=== PATIENT | female | born 1985 | race Caucasian/White ===

== ENCOUNTER 2016-04-16 18:45 | Inpatient (IN) | payer BC, OTHER ==
[2016-04-16] MEDS: DEXTROSE 5%-LACTATED RINGERS 1,000 ML IV SCH (19:30)
[2016-04-16] MEDS ORDERED: DINOPROSTONE 10 MG VAGINAL SUPPOSITORY VG ONE (20:15)
[2016-04-16 20:30] LABS: BASOPHIL 0.4 % (0-2.0); EOSINOPHIL 0.9 % (0-4.5); MCH 30.3 pg (25.7-33.7); MCHC 33.4 g/dl (32.0-36.0); MEAN CELL VOLUME 90.7 fl (80-96); MEAN PLT VOLUME 9.6 fl (7.5-11.1); NEUTROPHILS 65.5 % (42.8-82.8); PLATELET COUNT 177 K/MM3 (134-434); RDW 13.4 % (11.6-15.6); WHITE BLOOD COUNT 8.2 K/mm3 (4.0-10.0)
--- NOTE | 2016-04-16 20:30 | HP ---
Past Medical History - Primary Care Physician PCP:: Felipe Crockett - Admission Chief Complaint: 30 yo P0 with at EGA 40w3d admitted for labor induction. History of Present Illness: Primigravida GBS (-) Not in labor Unfavorable cervix. 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: No: Alzheimer's, CVA, Dementia, Migraine, Multiple Sclerosis, Peripheral Neuropathy, Parkinson's, Seizure, Syncope, TIA, Vertigo, Other Cardiovascular: No: AFIB, Aneurysm, Aortic Insufficiency, Aortic Stenosis, CAD, CHF, Deep Vein Thrombosis, HTN, Hyperlipdemia, MS, Mitral Insufficiency, Mitral Stenosis, Murmur, Pulmonary Hypertension, Other Pulmonary: No: Asthma, Bronchitis, Cancer, COPD, O2 Dependent, Pneumonia, Previously Intubated, Pulmonary Embolus, Pulmonary Fibrosis, Sleep Apnea, Other Gastrointestinal: No: Ascites, Cancer, Constipation, Crohn's Disease, Diverticulitis, Diverticulosis, Esophageal Varices, Gastritis, GERD, GI Bleed, Hemorrhoids, Hiatal Hernia, Inflamatory Bowel Disease, Irritable Bowel Disease, Pancreatitis, Peptic Ulcer Disease, Ulcerative Colitis, Other Hepatobiliary: No: Cirrhosis, Cholelithiasis, Cholecystitis, Choledocholithiasis , Hepatitis A, Hepatitis B, Hepatitis C, Other Renal/: No: Renal Failure, Renal Inusuff, BPH, Cancer, Hematuria, Hemodialysis , Neurogenic Bladder, Renal Calculi, UTI, Other Reproductive: No: Ectopic , Endometriosis, Fibroids, PID, Polycystic Ovary Syndrome, Postmenopausal, Other ...: 1 ...Para: 0 ... Weeks Gestation by Dates: 40.3 Heme/Onc: No: Anemia, B12 Deficiency, Bleeding Disorder, Cancer, Current Chemotherapy, Current Radiation Therapy, Hemochromatosis, Hypercoaguable State, Myeloproliferative Synd, Sickle Cell Disease, Sickle Cell Trait, Thrombocytopenia, Other Infectious Disease: No: AIDS, C-Diff, Herpes Zoster, HIV, MRSA, STD's, Tuberculosis, VREF, Other Psych: No: Addictions, Anxiety, Bipolar, Depression, Panic, Psychosis, Schizophrenia, Other Musculoskeletal: No: Bursitis, Chronic low back pain, Hemiparesis, Hemiplegia, Osteoarthritis, Paraplegia, Other Rheumatology: No: Fibromyalgia, Gout, Lupus, Rheumatoid Arthritis, Sarcoidosis, Vasculitis, Other ENT: No: Allergic Rhinitis, Sinusitis, Other Endocrine: No: Graeme's Disease, Didi's Disease, Diabetes Insipidus, Diabetes Mellitus, Hyperparathyroidism, Hyperthyroidism, Hypothyroidism, Osteopenia, SIADH, Other Dermatology: No: Basal Cell, Cellulitis, Eczema, Melanoma, Psoriasis, Squamous Cell, Other - Past Surgical History Past Surgical History: Yes: None Hx Myomectomy: No Hx Transabdominal Cerclage: No - Smoking History Have you smoked in the past 12 months: No - Alcohol/Substance Use Hx Alcohol Use: No History of Substance Use: reports: None - Social History Usual Living Arrangement: Yes: With Spouse ADL: Independent History of Recent Travel: No Home Medications - Allergies Allergies/Adverse Reactions: Allergies Allergy/AdvReac Type Severity Reaction Status Date / Time No Known Allergies Allergy Verified 04/16/16 20:30 - Home Medications Home Medications: Ambulatory Orders Vitamins (Sjr) - 1 tab PO DAILY 04/16/16 Review of Systems Findings/Remarks: Well appearing - Review of Systems Constitutional: reports: No Symptoms Eyes: reports: No Symptoms HENT: reports: No Symptoms Neck: reports: No Symptoms Cardiovascular: reports: No Symptoms Respiratory: reports: No Symptoms Gastrointestinal: reports: No Symptoms Genitourinary: reports: No Symptoms Breasts: reports: No Symptoms Reported Musculoskeletal: reports: No Symptoms Integumentary: reports: No Symptoms Neurological: reports: No Symptoms Endocrine: reports: No Symptoms Hematology/Lymphatic: reports: No Symptoms Psychiatric: reports: No Symptoms Pain Intensity: 0 Physical Exam - Maternity Vital Signs: BP 135/75, Pulse 89, Temp 97.8 Constitutional: Yes: Well Nourished, No Distress, Calm Eyes: Yes: WNL, Conjunctiva Clear HENT: Yes: WNL, Atraumatic, Normocephalic Neck: Yes: WNL, Supple, Trachea Midline Cardiovascular: Yes: WNL, Regular Rate and Rhythm Lungs: Clear to auscultation, Normal air movement Breast(s): Yes: WNL - Abdominal Exam/OB Fundal Height: 40 Number of Fetuses: Single Presentation: Vertex Contractions: Yes Regularity: Irregular Intensity: Unaware Monitor Mode: External Heart Rate (range): 130 Heart Rate Location: Midline Category: I Accelerations: Uniform Decelerations: None - Vaginal Exam/OB Vaginal Bleediing: Old Blood Speculum Exam: No Dilatation (cm): 0 Effacement (%): 0 Amniotic Membrane Status: Intact Presentation: Vertex/Position Station: -4 (Adequate gynecoid pelvimetry) - Physical Exam Musculoskeletal: Yes: WNL Extremities: Yes: WNL Edema: Yes Edema: LLE: 1+, RLE: 1+ Integumentary: Yes: WNL Deep Tendon Reflex Grade: Normal +2 ...Motor Strength: WNL Psychiatric: Yes: WNL, Alert, Oriented Hemorrhage Risk Assessment - Risk Factors Medium Risk Factors: Yes: None High Risk Factors: Yes: None Risk Score: 1 Risk Level: Medium Risk Imaging - Results Ultrasound: Report Reviewed Assessment/Plan 30 yo P0 with at EGA 40w3d admitted for labor induction. Patient is not in labor and has unfavorable cervical exam. The fetus with Category I tracing and does not require intervention. Adequate gynecoid pelvimetry noted. Management options were discussed. Risks, benefits of expectant management vs labor induction were discussed. Patient requested labor induction. The risks of infection, bleeding, failed induction, uterine tachysystole, distress, shoulder dystocia, etc. explained.
[2016-04-16 20:54] LABS: CALCIUM 8.2 mg/dL (8.5-10.1); CREATININE 0.8 mg/dL (0.55-1.02)
[2016-04-16 21:05] LABS: INR 0.88 (0.82-1.09); PROTHROMBIN TIME (PATIENT) 9.7 SEC (9.98-11.88)
[2016-04-16 21:29] VITALS: BMI 32.0
[2016-04-16] MEDS ORDERED: TUBERCULIN PPD 5 TU/0.1ML SYRINGE (IN PATIENT USE ONLY) ID ONE (21:30)
[2016-04-17] MEDS: DEXTROSE 5%-LACTATED RINGERS 1,000 ML IV SCH ×2 (02:45→11:24)
[2016-04-17] MEDS ORDERED: ACETAMINOPHEN 325 MG TABLET (FP) PO ONE (07:10)
[2016-04-17] MEDS ORDERED: BUTORPHANOL TARTRATE 1 MG/ML VIAL IVPB ONE (08:47)
[2016-04-17] MEDS ORDERED: PROMETHAZINE HCL 25 MG/1 ML VIAL IVPB ONE (08:47)
--- NOTE | 2016-04-17 08:54 | PN ---
Ante-Partal Exam - Subjective Subjective: Patient w/o complaints. She has some contractions. Vital Signs: Vital Signs Temperature 98.1 F 04/17/16 08:00 Pulse Rate 85 04/17/16 08:00 Respiratory Rate 18 04/17/16 08:00 Blood Pressure 133/79 04/17/16 08:00 O2 Sat by Pulse Oximetry (%) Bleeding: No Headache: No Visual changes: No Right upper quadrant pain: No Pain (scale 1-10): 4 - Contractions Contractions: Yes Regularity: Irregular Intensity: Mild Monitor Mode: External - Exam during Labor Heart Rate: 130 Variability: Moderate Heart Rate Location: Midline Category: I Monitor Accelerations: Present Monitor Decelerations: None Amniotic Membrane Status: Intact - Intrapartum Hemorrhage Risk Medium Risk Factors: None High Risk Factors: None Risk Score: 0 Risk Level: Low Risk - Assessment/Plan Assessment/Plan: 30 yo P0 at EGA 40w4d undergoing labor induction. Fetus with Category I tracing. Patient is doing well. Plan to start pitocin for labor induction. IV sedation for pain mgt. Plan of care, risks, benefits, alternatives were discussed with pt and .
[2016-04-17] MEDS ORDERED: OXYTOCIN 15 UNITS/ LR 250 ML 250 ML IVPB SCH (09:00)
[2016-04-17] MEDS: FENTANYL/BUPIVACAINE/NS/PF - PCEA - 50 ML DISP.SYRIN EP SCH (12:30)
[2016-04-17] MEDS ORDERED: CITRIC ACID/SODIUM CITRATE 30 ML UNIT-DOSE CUP PO ONE (14:30)
--- NOTE | 2016-04-17 14:44 | PN ---
Ante-Partal Exam - Subjective Subjective: Patient w/o complaints. Patient is s/p epidural. FHT reviewed and is Category I at this time. Pitocin is off. Prior FHT with recurrent variable decels and prolonged decels. The FHT recovered after ptocin was turned off, positional changes. Vital Signs: Vital Signs Temperature 97.8 F 04/17/16 14:00 Pulse Rate 88 04/17/16 14:00 Respiratory Rate 20 04/17/16 14:00 Blood Pressure 123/67 04/17/16 14:00 O2 Sat by Pulse Oximetry (%) 99 04/17/16 14:00 Bleeding: No Headache: No Visual changes: No Right upper quadrant pain: No Pain (scale 1-10): 0 - Contractions Contractions: Yes Regularity: Irregular Intensity: Unaware - Exam during Labor Heart Rate: 130 Variability: Moderate Heart Rate Location: Midline Category: I Monitor Accelerations: Present Monitor Decelerations: None (Prior variables and prolonged decels.) Exam: Vaginal Dilatation (cm): 1 Effacement (%): 50 Amniotic Membrane Status: Intact Presentation: Vertex Station: -3 - Intrapartum Hemorrhage Risk Medium Risk Factors: None High Risk Factors: None Risk Score: 0 Risk Level: Low Risk - Assessment/Plan Assessment/Plan: 30 yo P0 with at EGA 40w4d admitted for labor induction. The fetus is with recurrent decels when pitocin is used. FHT is Category I at this time but the patient does not want to proceed with induction. We discussed the options for management including continuing induction vs. section. Patient requested to have a section. The risk of surgery explained, including but not limited to infection, bleeding, scarring, injury to underlying organs or structures. Patient requested to proceed with surgery.
[2016-04-17] MEDS ORDERED: ONDANSETRON 4 MG/2 ML VIAL IVPB PRN (15:56)
[2016-04-17] MEDS ORDERED: BENZOCAINE 20% 57 GM BOTTLE TP PRN (18:06)
[2016-04-17] MEDS ORDERED: oxyCODONE HCL 5 MG TABLET PO PRN (18:06)
[2016-04-17] MEDS ORDERED: METHYLERGONOVINE MALEATE 0.2 MG/1 ML AMP IM PRN (18:06)
[2016-04-17] MEDS ORDERED: WITCH HAZEL 50% (TUCKS) 40 PAD/JAR PAD TP PRN (18:06)
[2016-04-17] MEDS ORDERED: OXYTOCIN 20 UNITS in 0.9% NS 1,000 ML IV SCH (18:15)
--- NOTE | 2016-04-17 18:15 | OP ---
Operative Note - Note: Operative Date: 04/17/16 Pre-Operative Diagnosis: Post term at 40w4d with nonreassuring FHT Operation: Primary LT C/S Findings: Live baby boy in vtx presentation, (+) meconium. 8/9, normal ut/tubes/ ovaries. Post-Operative Diagnosis: Same as Pre-op Surgeon: Felipe Crockett Program Checker: Og Davila Anesthesiologist/MOTH PROOFER: Cruzito Kasper Anesthesia: Epidural Specimens Removed: Placenta Estimated Blood Loss (mls): 500 Drains & Tubes with Location: Bond Catheter Drains, Volume Out (mls): 100 Blood Volume Replaced (mls): 0 Fluid Volume Replaced (mls): 1,800 Operative Report Dictated: Yes
[2016-04-17] MEDS ORDERED: ELECTROLYTE-148 SOLN 500 ML IV ONE (18:17)
[2016-04-17] MEDS ORDERED: ELECTROLYTE-148 SOLN 1,000 ML IV SCH (18:30)
[2016-04-17] MEDS: IBUPROFEN 800 MG/8 ML IJ IVPB PRN (22:20)
[2016-04-18] MEDS: IBUPROFEN 800 MG/8 ML IJ IVPB PRN (06:36)
[2016-04-18 07:47] LABS: BASOPHIL 0.6 % (0-2.0); EOSINOPHIL 0.6 % (0-4.5); MCH 31.4 pg (25.7-33.7); MCHC 34.1 g/dl (32.0-36.0); MEAN CELL VOLUME 91.9 fl (80-96); NEUTROPHILS 67.5 % (42.8-82.8); PLATELET COUNT 127 K/MM3 (134-434); RDW 13.8 % (11.6-15.6); WHITE BLOOD COUNT 10.2 K/mm3 (4.0-10.0)
--- NOTE | 2016-04-18 08:50 | PN ---
Progress Note (short form) - Note Progress Note: Anesthesia POD#1 S/P C- section under epidural and duramorph Patient did well. Pain is coming back now,vomited once, no more. Moving extremities well. Started oral liquids. No other complications seen. JO Patricio..
[2016-04-18] MEDS: PRENATAL VITAMINS W/ FOLIC ACID TABLET (FP) PO SCH (10:00)
[2016-04-18] MEDS: FERROUS SO4 325 MG TABLET (FP) PO SCH (10:00)
[2016-04-18] MEDS: ENOXAPARIN NA (PORCINE) 40 MG/0.4 ML DISP.SYRIN SQ SCH (10:02)
[2016-04-18] MEDS: ACETAMINOPHEN 325 MG TABLET (FP) PO PRN ×3 (12:51→22:06)
[2016-04-18] MEDS: IBUPROFEN 600 MG TABLET (FP) PO PRN ×3 (12:52→22:06)
[2016-04-18] MEDS: SIMETHICONE 80 MG TAB.CHEW (FP) PO PRN ×3 (12:53→22:05)
[2016-04-18] MEDS ORDERED: BISACODYL 10 MG SUPP.RECT RC PRN (18:07)
[2016-04-18] MEDS: SENNOSIDES/DOCUSATE COMBO (SENNA PLUS) TABLET (UD) PO PRN (22:06)
[2016-04-19] MEDS: SIMETHICONE 80 MG TAB.CHEW (FP) PO PRN ×4 (02:10→17:31)
[2016-04-19] MEDS: ACETAMINOPHEN 325 MG TABLET (FP) PO PRN ×4 (02:11→17:32)
[2016-04-19] MEDS: IBUPROFEN 600 MG TABLET (FP) PO PRN ×4 (02:11→17:31)
--- NOTE | 2016-04-19 06:51 | PN ---
Post Progress Note - Subjective Subjective: 30 yo P1 now s/p 1' c/s for NR FHR no complains, + voiding, + flatus + ambulation, pain controlled with Motrin/Tylenol Type of Delivery: Primary C/S Vital Signs: Vital Signs Temperature 98.2 F 04/18/16 21:35 Pulse Rate 78 04/18/16 21:35 Respiratory Rate 20 04/18/16 21:35 Blood Pressure 119/68 04/18/16 21:35 O2 Sat by Pulse Oximetry (%) 99 04/17/16 17:35 Breast Exam: Yes: Soft Uterus: Yes: Fundus Firm, Non-tender Incision: Yes: Sutures intact Lochia: Yes: Rubra Lochia, amount: Small Extremities: Yes: Calves non-tender Activity: Ambulating - Labs Labs: CBC WBC 10.2 K/mm3 (4.0-10.0) H 04/18/16 05:35 RBC 3.07 M/mm3 (3.60-5.2) L D 04/18/16 05:35 Hgb 9.6 GM/dL (10.7-15.3) L D 04/18/16 05:35 Hct 28.3 % (32.4-45.2) L D 04/18/16 05:35 MCV 91.9 fl (80-96) 04/18/16 05:35 MCHC 34.1 g/dl (32.0-36.0) 04/18/16 05:35 RDW 13.8 % (11.6-15.6) 04/18/16 05:35 Plt Count 127 K/MM3 (134-434) L D 04/18/16 05:35 MPV 9.0 fl (7.5-11.1) 04/18/16 05:35 Neutrophils % 67.5 % (42.8-82.8) 04/18/16 05:35 Lymphocytes % 23.0 % (8-40) 04/18/16 05:35 Monocytes % 8.3 % (3.8-10.2) 04/18/16 05:35 Eosinophils % 0.6 % (0-4.5) 04/18/16 05:35 Basophils % 0.6 % (0-2.0) 04/18/16 05:35 Assessment/Plan POD # 2 s/p 1' c/s VSS, Afibrile Doing well Rh+, Baby for circumcision consent signed continue routine care
[2016-04-19] MEDS: FENTANYL/BUPIVACAINE/NS/PF - PCEA - 50 ML DISP.SYRIN EP SCH (08:44)
[2016-04-19] MEDS: FERROUS SO4 325 MG TABLET (FP) PO SCH (09:39)
[2016-04-19] MEDS: ENOXAPARIN NA (PORCINE) 40 MG/0.4 ML DISP.SYRIN SQ SCH (09:39)
[2016-04-19] MEDS: PRENATAL VITAMINS W/ FOLIC ACID TABLET (FP) PO SCH (09:39)
[2016-04-20] MEDS: ACETAMINOPHEN 325 MG TABLET (FP) PO PRN ×4 (00:11→20:26)
[2016-04-20] MEDS: SENNOSIDES/DOCUSATE COMBO (SENNA PLUS) TABLET (UD) PO PRN (00:11)
[2016-04-20] MEDS: SIMETHICONE 80 MG TAB.CHEW (FP) PO PRN ×2 (00:11→09:00)
[2016-04-20] MEDS: IBUPROFEN 600 MG TABLET (FP) PO PRN ×4 (00:13→20:25)
--- NOTE | 2016-04-20 07:47 | PN ---
Post Progress Note - Subjective Subjective: 30 yo P 1 now s/p 1' LST c/s for NRFHR no complains, voiding, + flatus, ambulating Breast feeding Type of Delivery: Primary C/S Vital Signs: Vital Signs Temperature 97.8 F 04/19/16 20:27 Pulse Rate 82 04/19/16 20:27 Respiratory Rate 20 04/19/16 20:27 Blood Pressure 125/64 04/19/16 20:27 O2 Sat by Pulse Oximetry (%) 99 04/17/16 17:35 Breast Exam: Yes: Soft Uterus: Yes: Fundus Firm, Fundus below umbilicus, Non-tender Incision: Yes: Dressing dry and intact, Sutures intact Abdomen/GI: Yes: Abdomen soft, Tolerating PO Lochia: Yes: Rubra Lochia, amount: Small Extremities: Yes: Calves non-tender Activity: Ambulating - Labs Labs: CBC WBC 10.2 K/mm3 (4.0-10.0) H 04/18/16 05:35 RBC 3.07 M/mm3 (3.60-5.2) L D 04/18/16 05:35 Hgb 9.6 GM/dL (10.7-15.3) L D 04/18/16 05:35 Hct 28.3 % (32.4-45.2) L D 04/18/16 05:35 MCV 91.9 fl (80-96) 04/18/16 05:35 MCHC 34.1 g/dl (32.0-36.0) 04/18/16 05:35 RDW 13.8 % (11.6-15.6) 04/18/16 05:35 Plt Count 127 K/MM3 (134-434) L D 04/18/16 05:35 MPV 9.0 fl (7.5-11.1) 04/18/16 05:35 Neutrophils % 67.5 % (42.8-82.8) 04/18/16 05:35 Lymphocytes % 23.0 % (8-40) 04/18/16 05:35 Monocytes % 8.3 % (3.8-10.2) 04/18/16 05:35 Eosinophils % 0.6 % (0-4.5) 04/18/16 05:35 Basophils % 0.6 % (0-2.0) 04/18/16 05:35 Assessment/Plan POD # 2 s/p 1' c/s VSS, Afibrile Doing well Rh+, Baby circumcised consider d/c home today vs, tomorrow Instructions given NPV for 6wks RTO 1 and 6wks BC discussed
[2016-04-20 08:22] LABS: BASOPHIL 0.5 % (0-2.0); EOSINOPHIL 1.7 % (0-4.5); MCH 31.2 pg (25.7-33.7); MCHC 33.6 g/dl (32.0-36.0); MEAN CELL VOLUME 92.9 fl (80-96); MEAN PLT VOLUME 8.7 fl (7.5-11.1); NEUTROPHILS 69.4 % (42.8-82.8); PLATELET COUNT 151 K/MM3 (134-434); RDW 13.6 % (11.6-15.6); WHITE BLOOD COUNT 10.9 K/mm3 (4.0-10.0)
[2016-04-20] MEDS: ENOXAPARIN NA (PORCINE) 40 MG/0.4 ML DISP.SYRIN SQ SCH (09:10)
[2016-04-20] MEDS: PRENATAL VITAMINS W/ FOLIC ACID TABLET (FP) PO SCH (09:14)
[2016-04-20] MEDS: FERROUS SO4 325 MG TABLET (FP) PO SCH (09:14)
[2016-04-21] MEDS: ACETAMINOPHEN 325 MG TABLET (FP) PO PRN (08:06)
[2016-04-21] MEDS: SIMETHICONE 80 MG TAB.CHEW (FP) PO PRN (08:06)
[2016-04-21] MEDS: IBUPROFEN 600 MG TABLET (FP) PO PRN (08:07)
[2016-04-21] MEDS: ENOXAPARIN NA (PORCINE) 40 MG/0.4 ML DISP.SYRIN SQ SCH (10:19)
[2016-04-21] MEDS: PRENATAL VITAMINS W/ FOLIC ACID TABLET (FP) PO SCH (10:19)
[2016-04-21] MEDS: FERROUS SO4 325 MG TABLET (FP) PO SCH (10:19)
--- NOTE | 2016-04-21 13:29 | DS ---
Physical Exam-PHYS ASSISTANT Vital Signs: Vital Signs Temperature 98.3 F 04/20/16 22:00 Pulse Rate 71 04/20/16 22:00 Respiratory Rate 18 04/20/16 22:00 Blood Pressure 148/77 04/20/16 22:00 O2 Sat by Pulse Oximetry (%) 99 04/17/16 17:35 Constitutional: Yes: Well Nourished Eyes: Yes: WNL Neck: Yes: WNL Cardiovascular: Yes: WNL Respiratory: Yes: WNL Gastrointestinal: Yes: WNL ....Post : Yes: Uterus firm, Uterus non-tender, Slight lochia rubra Breast(s): Yes: WNL Wound/Incision: Yes: Clean/Dry, Well Approximated ...Motor Strength: WNL Psychiatric: Yes: WNL Labs: CBC, BMP 04/20/16 07:30 04/16/16 17:30 Delivery - Delivery Section: Primary Type of Anesthesia: Epidural Episiotomy/Laceration: None EBL (cc): 500 Delivery, Single - Stages of Labor Date 1st Stage Initiatied: 04/17/16 Time 1st Stage Initiated: 06:00 Date of Delivery: 04/17/16 Time of Delivery: 15:55 Time Placenta Delivered: 15:56 - Condition of Infant Bobbin Doffer/Order Schedule Clerk Present: Yes Name: Eri Short Gender: Male Weight: 6 lb 5 oz Position: Left, OT Total Hours ROM (Hrs/Mins): 0hrs 2min - 1 Minute Total Score: 8 5 Minutes Total Score: 9 - Willard Feeding Plan Initial Plan: Exclusive throughout hospitalization Discharge Summary Reason For Visit: INDUCTION Condition: Improved - Instructions Diet, Activity, Other Instructions: Physical activity Resume your normal everyday activity as tolerated no heavy lifting or exercise until seen by your surgeon. You may walk unlimited tim of and climb stairs. You may resume driving the car when you feel safe and comfortable behind the wheel. No sexual activity as instructed. Wound care If you have a bandage, leave it on, and keep dry for 48-72 hours. After that time discard the outer bandage. If they are tapes on the skin under the out of bandage leave them in place. They will peel off in the next 7 to 10 days. Do Not Peel them off. You may shower the day after surgery. If there are tapes present on the skin, you may shower over them. Diet There are no dietary restrictions. Eat healthy, high-fiber foods. Drink 6 to 8 glasses of liquid each day. This will assist in keeping your bowels are regular. Pain management You may take Tylenol or acetaminophen or Ibuprofen (for example, Motrin, Advil etc.) from my pain prescription medication is ordered should be taken as prescribed for moderate to severe pain. Call MD for any of the following: Severe pain not relieved by medication Fever of 101 or higher Excessive bleeding or drainage on dressing Inability to urinate PT INSTRUCTED TO CALL OFFICE FOR A 1 WEEK FOLLOW UP APPOINMENT. Physical activity Resume your normal everyday activity as tolerated no heavy lifting or exercise until seen by your surgeon. You may walk unlimited tim of and climb stairs. You may resume driving the car when you feel safe and comfortable behind the wheel. No sexual activity as instructed. Wound care If you have a bandage, leave it on, and keep dry for 48-72 hours. After that time discard the outer bandage. If they are tapes on the skin under the out of bandage leave them in place. They will peel off in the next 7 to 10 days. Do Not Peel them off. You may shower the day after surgery. If there are tapes present on the skin, you may shower over them. Diet There are no dietary restrictions. Eat healthy, high-fiber foods. Drink 6 to 8 glasses of liquid each day. This will assist in keeping your bowels are regular. Pain management You may take Tylenol or acetaminophen or Ibuprofen (for example, Motrin, Advil etc.) from my pain prescription medication is ordered should be taken as prescribed for moderate to severe pain. Call MD for any of the following: Severe pain not relieved by medication Fever of 101 or higher Excessive bleeding or drainage on dressing Inability to urinate PT INSTRUCTED TO CALL OFFICE FOR A 4-6 WEEK FOLLOW UP APPOINTMENT. Disposition: HOME - Home Medications Comprehensive Discharge Medication List: Ambulatory Orders Vitamins (Sjr) - 1 tab PO DAILY 04/16/16
[2016-04-21 16:47] VITALS: BP 138/78; PULSE 63; TEMP 97.7
--- NOTE | 2016-04-24 11:10 | PATH ---
Surgical Pathology Report Patient Name: [facility]. Rec. 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 Specimen(s) Received PLACENTA Clinical History Final Diagnosis PLACENTA, DELIVERY: SMALL (355 GRAM) FOCALLY DISRUPTED THIRD TRIMESTER PLACENTA WITH INFARCT, 3 VESSEL UMBILICAL CORD, AND UNREMARKABLE PLACENTAL MEMBRANES. Electronically Signed Omid Arriaza M.D. Gross Description The specimen is received fresh labeled placenta and is a 355 gram, 19.0 x 12.5 x 1.8 cm. placenta with attached membranes and umbilical cord. The attached membranes are cavazos, translucent with focal opacities and insert marginally. The umbilical cord measures 10 cm. in length and averages 0.8 cm. in diameter. The cord inserts eccentrically, 3.5 cm. to the nearest margin. No true knots or strictures are identified. Cut surface of the umbilical cord reveals 3 vessels. The surface is coffey-blue with minimal fibrin deposition and appropriate caliber vessels. The maternal surface is red-brown with focal defects. Sectioning reveals a 1 cm in greatest dimension cavazos intraparenchymal lesion. The remaining placental parenchyma is red-brown and spongy. Compliance Vice President sections are submitted in 4 cassettes as follows: 1-membrane rolls and umbilical cord; 2-lesion; 3-4-full thickness sections of placenta. 04/23/201604/23/2016
== END 2016-04-21 14:50 | disposition home or self-care (01) | DRG 766 ==
LOC: JLDR 18:45 → J3W 04-17 17:40
PROVIDERS: ADMIT Obstetrics & Gynecology; ATTEND Obstetrics & Gynecology
PROC: 10D00Z1 Extraction of Products of Conception, Low, Open Approach (ICD-10-PCS; principal; 2016-04-17)
DX: O76 Abnormality in fetal heart rate and rhythm complicating labor and delivery (principal); O48.0 Post-term pregnancy; Z3A.40 40 weeks gestation of pregnancy; Z37.0 Single live birth
CPT/HCPCS: 36415; 80048; 85025; 85610; 85730; 86593; 86850; 86900; 86901; 88307-TC

== ENCOUNTER 2018-08-24 05:30 | Inpatient (IN) | payer BC, OTHER ==
[~2018-08-24 05:30] MED LIST: CITRIC ACID/SODIUM CITRATE 30 ML UNIT-DOSE CUP PO ONE
[2018-08-24] MEDS ORDERED: ELECTROLYTE-148 SOLN 500 ML IV ONE ×2 (06:00)
[2018-08-24] MEDS ORDERED: ELECTROLYTE-148 SOLN 1,000 ML IV SCH ×2 (06:30→09:00)
[2018-08-24 07:01] VITALS: BMI 34.2
[2018-08-24] MEDS ORDERED: OXYTOCIN 20 UNITS in 0.9% NS 20 UNIT/1,000 ML INFUS.BAG IV ONE ×2 (07:49→08:54)
[2018-08-24] MEDS ORDERED: TERBUTALINE SULFATE 1 MG/1 ML VIAL SQ ONE ×2 (07:49→07:50)
[2018-08-24] MEDS ORDERED: morphine SULFATE/Preservative Free 0.5 MG/ML (1cc Syringe) ONE (08:59)
[2018-08-24] MEDS ORDERED: PHENYLEPHRINE HCL 10 MG/1 ML SINGLE DOSE VIAL ONE (08:59)
--- NOTE | 2018-08-24 09:04 | HP ---
Past Medical History - Primary Care Physician PCP:: Felipe Crockett - Admission Chief Complaint: 32yo P1 with at EGA 40wk admitted for repeat C/S. History of Present Illness: complicated by: 1. prior hx of C/S 2. CPD 3. 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: No: Alzheimer's, CVA, Dementia, Migraine, Multiple Sclerosis, Peripheral Neuropathy, Parkinson's, Seizure, Syncope, TIA, Vertigo, Other Cardiovascular: No: AFIB, Aneurysm, Aortic Insufficiency, Aortic Stenosis, CAD, CHF, Deep Vein Thrombosis, HTN, Hyperlipdemia, [place], Mitral Insufficiency, Mitral Stenosis, Murmur, Pulmonary Hypertension, Other Pulmonary: No: Asthma, Bronchitis, Cancer, COPD, O2 Dependent, Pneumonia, Previously Intubated, Pulmonary Embolus, Pulmonary Fibrosis, Sleep Apnea, Other Gastrointestinal: No: Ascites, Cancer, Constipation, Crohn's Disease, Diverticulitis, Diverticulosis, Esophageal Varices, Gastritis, GERD, GI Bleed, Hemorrhoids, Hiatal Hernia, Inflamatory Bowel Disease, Irritable Bowel Disease, Pancreatitis, Peptic Ulcer Disease, Ulcerative Colitis, Other Hepatobiliary: No: Cirrhosis, Cholelithiasis, Cholecystitis, Choledocholithiasis , Hepatitis A, Hepatitis B, Hepatitis C, Other Renal/: No: Renal Failure, Renal Inusuff, BPH, Cancer, Hematuria, Hemodialysis , Neurogenic Bladder, Renal Calculi, UTI, Other Reproductive: No: Ectopic , Endometriosis, Fibroids, PID, Polycystic Ovary Syndrome, Postmenopausal, Other ...: 2 ...Para: 1 (C/S x 1) ...Term: 1 ...LMP: 11/16/17 ... Weeks Gestation by Dates: 40.2 ...EDC by Dates: 08/23/18 ...EDC by Sono: 08/22/18 Heme/Onc: No: Anemia, B12 Deficiency, Bleeding Disorder, Cancer, Current Chemotherapy, Current Radiation Therapy, Hemochromatosis, Hypercoaguable State, Myeloproliferative Synd, Sickle Cell Disease, Sickle Cell Trait, Thrombocytopenia, Other Infectious Disease: No: AIDS, C-Diff, Herpes Zoster, HIV, MRSA, STD's, Tuberculosis, VREF, Other Psych: No: Addictions, Anxiety, Bipolar, Depression, Panic, Psychosis, Schizophrenia, Other Musculoskeletal: No: Bursitis, Chronic low back pain, Hemiparesis, Hemiplegia, Osteoarthritis, Paraplegia, Other Rheumatology: No: Fibromyalgia, Gout, Lupus, Rheumatoid Arthritis, Sarcoidosis, Vasculitis, Other ENT: No: Allergic Rhinitis, Sinusitis, Other Endocrine: No: Graeme's Disease, Didi's Disease, Diabetes Insipidus, Diabetes Mellitus, Hyperparathyroidism, Hyperthyroidism, Hypothyroidism, Osteopenia, SIADH, Other Dermatology: No: Basal Cell, Cellulitis, Eczema, Melanoma, Psoriasis, Squamous Cell, Other - Past Surgical History Past Surgical History: Yes: Hx Myomectomy: No Hx Transabdominal Cerclage: No - Smoking History Smoking history: Never smoked Have you smoked in the past 12 months: No - Alcohol/Substance Use Hx Alcohol Use: No History of Substance Use: reports: None - Social History Usual Living Arrangement: Yes: With Spouse, With Child ADL: Independent History of Recent Travel: No Home Medications - Allergies Allergies/Adverse Reactions: Allergies Allergy/AdvReac Type Severity Reaction Status Date / Time No Known Allergies Allergy Verified 04/16/16 20:30 - Home Medications Home Medications: Ambulatory Orders Vitamins (Sjr) - 1 tab PO DAILY 04/16/16 Family Disease History - Family Disease History Family Disease History: Other: Sister (Gail's thyroiditis) Review of Systems - Review of Systems Constitutional: reports: Other (early labor) Eyes: reports: No Symptoms HENT: reports: No Symptoms Neck: reports: No Symptoms Cardiovascular: reports: No Symptoms Respiratory: reports: No Symptoms Gastrointestinal: reports: No Symptoms Genitourinary: reports: No Symptoms Breasts: reports: No Symptoms Reported Musculoskeletal: reports: No Symptoms Integumentary: reports: No Symptoms Neurological: reports: No Symptoms Endocrine: reports: No Symptoms Hematology/Lymphatic: reports: No Symptoms Psychiatric: reports: No Symptoms Pain Intensity: 6 Physical Exam - Maternity Vital Signs: Vital Signs Temperature 97.7 F 08/24/18 06:54 Pulse Rate 85 08/24/18 07:54 Respiratory Rate 20 08/24/18 07:53 Blood Pressure 127/78 08/24/18 07:53 O2 Sat by Pulse Oximetry (%) Constitutional: Yes: Well Nourished, No Distress, Calm, Other (contractions stopped after Terbutaline SQ x 1) Eyes: Yes: WNL, Conjunctiva Clear, EOM Intact HENT: Yes: WNL, Atraumatic, Normocephalic Neck: Yes: WNL, Supple, Trachea Midline Cardiovascular: Yes: WNL, Regular Rate and Rhythm Lungs: Clear to auscultation, Normal air movement - Abdominal Exam/OB Fundal Height: 40 Number of Fetuses: Single Presentation: Vertex Contractions: Yes Regularity: Regular Intensity: Moderate (stopped after Terbutaline SQ) Heart Rate (range): 140 Heart Rate Location: Midline Category: I Accelerations: Non-Uniform Decelerations: None - Vaginal Exam/OB Vaginal Bleediing: No Speculum Exam: No Dilatation (cm): 0 Effacement (%): 0 Amniotic Membrane Status: Intact Presentation: Vertex/Position Station: -4 - Physical Exam Musculoskeletal: Yes: WNL Extremities: Yes: WNL Edema: No Integumentary: Yes: WNL Deep Tendon Reflex Grade: Normal +2 ...Motor Strength: WNL Psychiatric: Yes: WNL, Alert, Oriented Hemorrhage Risk Assessment - Risk Factors Medium Risk Factors: Yes: Prior , uterine surgery,or multiple laparotomies High Risk Factors: Yes: None Risk Score: 1 Risk Level: Medium Risk Imaging - Results Ultrasound: Report Reviewed Assessment/Plan 32yo P1 with at EGA 40wk admitted for repeat C/S. Pt presented in early labor. The cervical exam is unfavorable and the fetus is out of pelvis, c/ w CPD. The pt declined and prefers to proceed with repeat C/S. We discussed the risks and benefits of C/S at length, including but not limited to scarring, pain, bleeding, infection, injury to underlying organs and structures , need for additional surgery to repair/treat any problems or complications, complications/injuries, etc. The pt verbalized her understanding and requested to proceed with surgery. The pt is aware that all surgeries have risks and no guarantees can be provided.
[2018-08-24] MEDS ORDERED: ONDANSETRON 4 MG/2 ML VIAL IVPUSH PRN (09:16)
[2018-08-24] MEDS ORDERED: MIDAZOLAM HCL 2 MG/2 ML SINGLE DOSE VIAL ONE ×2 (09:47→09:51)
[2018-08-24] MEDS ORDERED: ENOXAPARIN NA (PORCINE) 40 MG/0.4 ML DISP.SYRIN SQ SCH (10:00)
[2018-08-24] MEDS ORDERED: SENNOSIDES/DOCUSATE COMBO (SENNA PLUS) TABLET (UD) PO PRN (10:19)
[2018-08-24] MEDS ORDERED: METHYLERGONOVINE MALEATE 0.2 MG/1 ML AMP IM PRN (10:19)
[2018-08-24] MEDS ORDERED: oxyCODONE HCL 5 MG TABLET PO PRN ×2 (10:19)
[2018-08-24] MEDS ORDERED: WITCH HAZEL 50% (TUCKS) 40 PAD/JAR PAD TP PRN (10:19)
[2018-08-24] MEDS ORDERED: IBUPROFEN 600 MG TABLET (FP) PO PRN (10:19)
[2018-08-24 10:27] LABS: VENOUS PC02 55.2 mmHg (41-51); VENOUS PH 7.27 (7.31-7.41)
[2018-08-24 10:30] LABS: ARTERIAL BLOOD GAS BASE EXCESS -4.5 meq/l (-2-2); ARTERIAL BLOOD GAS PCO2 39.2 mmHg (35-45); ARTERIAL BLOOD GAS pH 7.34 (7.35-7.45)
[2018-08-24 10:33] LABS: VENOUS PO2 14.2 mmHg (30-40)
[2018-08-24 10:38] LABS: ALLENS TEST POSITIVE
[2018-08-24 10:41] LABS: ARTERIAL BLOOD GAS PO2 26.8 mmHg (80-105)
--- NOTE | 2018-08-24 10:57 | OP ---
Operative Note - Note: Operative Date: 08/24/18 Pre-Operative Diagnosis: at EGA 40 2/7wk, prior C/S, spont labor Operation: Repeat LT C/S Findings: Live baby girl in vtx presentation w/un-engaged head, no meconium, normal uterus /tubes/ovaries Post-Operative Diagnosis: Same as Pre-op Surgeon: Felipe Crockett Phlebotomist Medical Lab Assistant: Ailyn Knight Anesthesiologist/DENTAL OFFICE ASSISTANT: Cruzito Kasper Anesthesia: Spinal Specimens Removed: Placenta Estimated Blood Loss (mls): 700 Drains & Tubes with Location: Bond cath Drains, Volume Out (mls): 200 Blood Volume Replaced (mls): 0 Fluid Volume Replaced (mls): 1,200 Operative Report Dictated: Yes
[2018-08-24] MEDS ORDERED: TUBERCULIN PPD 5 TU/0.1ML SYRINGE (IN PATIENT USE ONLY) ID ONE (11:00)
[2018-08-24] MEDS: OXYTOCIN 20 UNITS in 0.9% NS 20 UNIT/1,000 ML INFUS.BAG IV SCH (11:30)
[2018-08-24] MEDS: IBUPROFEN 800 MG/8 ML IJ IVPB PRN ×2 (13:48→22:23)
[2018-08-24] MEDS: SIMETHICONE 80 MG TAB.CHEW (FP) PO PRN (22:23)
[2018-08-25] MEDS: IBUPROFEN 800 MG/8 ML IJ IVPB PRN (05:13)
--- NOTE | 2018-08-25 08:40 | OP ---
DATE OF OPERATION: 08/24/2018 PREOPERATIVE DIAGNOSIS: at estimated gestational age of 40 weeks and 2 days, previous section, spontaneous labor. POSTOPERATIVE DIAGNOSIS: at estimated gestational age of 40 weeks and 2 days, previous section, spontaneous labor, delivered. PROCEDURE: Repeat low transverse section via Pfannenstiel skin incision. SURGEON: Felipe Crockett MD SEAM CLOSER: Ailyn Knight MD ANESTHESIOLOGIST: Cruzito Kasper MD ANESTHESIA: Spinal. COMPLICATIONS: None. PATHOLOGY: Placenta. ESTIMATED BLOOD LOSS: 700 mL. URINE OUTPUT: Clear urine, 200 mL, at the end of the procedure. INTRAVENOUS FLUIDS: Crystalloid, 1200 mL. FINDINGS: Live baby girl in vertex presentation with unengaged head . No meconium in amniotic fluid. Normal uterus, tubes, and ovaries. Apgars 9 and 9. Babys weight 7 pounds 10 ounces. DESCRIPTION OF PROCEDURE: The patient was met preoperatively. Risks, benefits, and alternatives of surgery were discussed in details. The patient was brought to the OR with the IV running. She was placed on the surgical table in a sitting position. The spinal anesthesia was achieved without difficulty. The patient was then placed in a supine position with a leftward tilt. The level of anesthesia was checked and found to be adequate. A Bond catheter was inserted and left to drain to gravity. The patient was prepped and draped in the usual sterile fashion. A time-out procedure was conducted as per standard protocol. The surgeons then proceeded with the operation. A Pfannenstiel skin incision was made with the knife along the prior scar. The incision was taken down to the level of fascia. The fascia was incised in the midline, and the incision was extended bilaterally using Farley scissors. The fascia was dissected away from the rectus muscles superiorly and inferiorly. The rectus muscles were in the midline using blunt and sharp dissection. The peritoneum was identified and entered sharply. The peritoneal incision was then extended superiorly and inferiorly with Metzenbaum scissors. The bladder peritoneum was dissected away from the lower uterine segment using sharp dissection. The bladder was reflected downwards using a [place] retractor. The uterus was incised transversely in the lower uterine segment. The incision was extended bilaterally using bandage scissors. The babys head was found to be in vertex presentation. However, it was unengaged and floating. There was no meconium in amniotic fluid. An attempt to deliver the baby during a was difficult because the head was unengaged. Therefore, after several attempts, the decision was made to use a vacuum assist. A vacuum device was applied to the head. The placement was verified, and the baby was delivered easily with a single push assisted by fundal pressure. The vacuum was disengaged. The baby was then delivered without any difficulty. The baby was crying spontaneously. The umbilical cord was clamped and cut. The baby was handed to the awaiting soil chemist. A segment of the umbilical cord was secured for umbilical cord blood gas. The placenta was then delivered manually and without complications. The uterus was cleared of all clots and debris using laparotomy laps. The uterus was exteriorized. The uterine incision was repaired using a 0 Biosyn suture. The uterus was noted to be well contracted. The uterine incision was then imbricated using a secondary layer of closure with 0 Biosyn suture. The uterus was then replaced into the abdominal cavity. Good hemostasis was confirmed. The operative site was irrigated using copious amounts of normal saline. The saline was aspirated and good hemostasis was confirmed. The abdominal partial peritoneum was then closed using a 2-0 chromic suture. The rectus muscles were approximated in the midline using several interrupted 2-0 chromic sutures. The fascia was closed using a 0 Vicryl suture with running stitch. Good hemostasis and approximation were confirmed. The subcutaneous tissues and Scarpas fascia were approximated using several interrupted 2-0 chromic sutures. The skin was closed with a 4-0 Vicryl suture using a subcutaneous stitch. Sponge, lap, and instrument counts were correct. The patient was transferred to the recovery room in stable condition and awake. Zachary [id number]
[2018-08-25 08:56] LABS: BASO % 0.8 % (0-2.0); EOS % 0.7 % (0-4.5); HEMATOCRIT 32.8 % (32.4-45.2); HEMOGLOBIN 11.1 GM/dL (10.7-15.3); LYMPH % 15.2 % (8-40); MCHC 33.7 g/dl (32.0-36.0); MEAN CELL VOLUME 92.1 fl (80-96); MEAN PLT VOLUME 9.1 fl (7.5-11.1); MONO % 5.6 % (3.8-10.2); NEUT % 77.7 % (42.8-82.8); PLATELET COUNT 133 K/MM3 (134-434); RBC 3.57 M/mm3 (3.60-5.2); RDW 14.7 % (11.6-15.6); WHITE BLOOD COUNT 8.5 K/mm3 (4.0-10.0)
--- NOTE | 2018-08-25 09:22 | PN ---
Post Progress Note - Subjective Subjective: Patient without acute complaints. Reports tolerating oral intake without nausea or vomiting. Ambulating without dizziness. Denies fevers or chills. Pain well controlled with oral pain medication. Pumping/breast feeding without issue. Passing flatus, no BM. Post Day: 1 Type of Delivery: Repeat C/S Vital Signs: Vital Signs Temperature 98.2 F 08/25/18 07:40 Pulse Rate 69 08/25/18 07:40 Respiratory Rate 20 08/25/18 08:00 Blood Pressure 132/81 08/25/18 07:40 O2 Sat by Pulse Oximetry (%) 99 08/24/18 11:45 Breast Exam: Yes: Soft Uterus: Yes: Fundus Firm, Fundus below umbilicus, Non-tender Incision: Yes: Dressing dry and intact Abdomen/GI: Yes: Abdomen soft, Passing flatus, Tolerating PO Lochia: Yes: Rubra Lochia, amount: Small Extremities: Yes: Calves non-tender, Edema (trace) Perineum: Yes: Intact Activity: Ambulating - Labs Labs: CBC WBC 8.5 K/mm3 (4.0-10.0) 08/25/18 08:30 RBC 3.57 M/mm3 (3.60-5.2) L 08/25/18 08:30 Hgb 11.1 GM/dL (10.7-15.3) 08/25/18 08:30 Hct 32.8 % (32.4-45.2) 08/25/18 08:30 MCV 92.1 fl (80-96) 08/25/18 08:30 MCH 31.0 pg (25.7-33.7) 08/25/18 08:30 MCHC 33.7 g/dl (32.0-36.0) 08/25/18 08:30 RDW 14.7 % (11.6-15.6) 08/25/18 08:30 Plt Count 133 K/MM3 (134-434) L 08/25/18 08:30 MPV 9.1 fl (7.5-11.1) 08/25/18 08:30 Absolute Neuts (auto) 6.6 K/mm3 (1.5-8.0) 08/25/18 08:30 Neutrophils % 77.7 % (42.8-82.8) 08/25/18 08:30 Lymphocytes % 15.2 % (8-40) D 08/25/18 08:30 Monocytes % 5.6 % (3.8-10.2) 08/25/18 08:30 Eosinophils % 0.7 % (0-4.5) 08/25/18 08:30 Basophils % 0.8 % (0-2.0) 08/25/18 08:30 Nucleated RBC % 0 % (0-0) 08/25/18 08:30 Assessment/Plan 32yo P2 s/p repeat LT C/S, doing well stable, afebrile. The pt is asymptomatic for s/sxs of anemia. care instructions reviewed. Continue routine postop care. Ambulation encouraged.
[2018-08-25] MEDS: ENOXAPARIN NA (PORCINE) 40 MG/0.4 ML DISP.SYRIN SQ SCH (09:34)
[2018-08-25] MEDS ORDERED: BISACODYL 10 MG SUPP.RECT RC PRN (10:19)
[2018-08-25] MEDS: IBUPROFEN 600 MG TABLET (FP) PO PRN ×3 (10:37→21:27)
[2018-08-25] MEDS: SIMETHICONE 80 MG TAB.CHEW (FP) PO PRN ×3 (10:38→21:27)
[2018-08-25] MEDS: ACETAMINOPHEN 325 MG TABLET (FP) PO PRN ×3 (10:38→21:27)
--- NOTE | 2018-08-25 10:42 | PN ---
Progress Note (short form) - Note Progress Note: Anesthesia postop note 32 y/o F s/p spinal anesthesia for section, duramorph for postop pain control POD#1, vss, aaox3, sensory motor intact distally, pain well controlled. No anesthesia complications.
[2018-08-25] MEDS: OXYTOCIN 20 UNITS in 0.9% NS 20 UNIT/1,000 ML INFUS.BAG IV SCH (21:23)
[2018-08-26] MEDS: ACETAMINOPHEN 325 MG TABLET (FP) PO PRN ×4 (02:11→19:23)
[2018-08-26] MEDS: SIMETHICONE 80 MG TAB.CHEW (FP) PO PRN ×3 (02:11→14:49)
[2018-08-26] MEDS: IBUPROFEN 600 MG TABLET (FP) PO PRN ×4 (02:11→19:23)
--- NOTE | 2018-08-26 08:40 | PN ---
Post Progress Note - Subjective Subjective: Pt w/o complaints. She was ambulating. Flatus present. Post Day: 2 Type of Delivery: Repeat C/S Vital Signs: Vital Signs Temperature 98.2 F 08/25/18 22:00 Pulse Rate 77 08/25/18 22:00 Respiratory Rate 18 08/25/18 22:00 Blood Pressure 121/70 08/25/18 22:00 O2 Sat by Pulse Oximetry (%) 99 08/24/18 11:45 Breast Exam: Yes: Soft Uterus: Yes: Fundus Firm, Fundus below umbilicus, Non-tender Incision: Yes: Dressing dry and intact Abdomen/GI: Yes: Abdomen soft Lochia: Yes: Rubra Lochia, amount: Small Extremities: Yes: Calves non-tender Perineum: Yes: Intact Activity: Ambulating - Labs Labs: CBC WBC 8.5 K/mm3 (4.0-10.0) 08/25/18 08:30 RBC 3.57 M/mm3 (3.60-5.2) L 08/25/18 08:30 Hgb 11.1 GM/dL (10.7-15.3) 08/25/18 08:30 Hct 32.8 % (32.4-45.2) 08/25/18 08:30 MCV 92.1 fl (80-96) 08/25/18 08:30 MCH 31.0 pg (25.7-33.7) 08/25/18 08:30 MCHC 33.7 g/dl (32.0-36.0) 08/25/18 08:30 RDW 14.7 % (11.6-15.6) 08/25/18 08:30 Plt Count 133 K/MM3 (134-434) L 08/25/18 08:30 MPV 9.1 fl (7.5-11.1) 08/25/18 08:30 Absolute Neuts (auto) 6.6 K/mm3 (1.5-8.0) 08/25/18 08:30 Neutrophils % 77.7 % (42.8-82.8) 08/25/18 08:30 Lymphocytes % 15.2 % (8-40) D 08/25/18 08:30 Monocytes % 5.6 % (3.8-10.2) 08/25/18 08:30 Eosinophils % 0.7 % (0-4.5) 08/25/18 08:30 Basophils % 0.8 % (0-2.0) 08/25/18 08:30 Nucleated RBC % 0 % (0-0) 08/25/18 08:30 Assessment/Plan 32yo P2 s/p repeat LT C/S, doing well stable, afebrile. The pt is asymptomatic for s/sxs of anemia. care instructions reviewed. Continue routine postop care. Ambulation encouraged.
[2018-08-26] MEDS: ENOXAPARIN NA (PORCINE) 40 MG/0.4 ML DISP.SYRIN SQ SCH (09:05)
--- NOTE | 2018-08-26 17:23 | PN ---
Delivery - Delivery Section: Repeat, Low Flap Transverse Type of Anesthesia: Spinal Episiotomy/Laceration: None EBL (cc): 700 Delivery, Single - Stages of Labor Date 1st Stage Initiatied: 08/24/18 Time 1st Stage Initiated: 07:00 Date of Delivery: 08/24/18 Time of Delivery: 09:43 Date Placenta Delivered: 08/24/18 Time Placenta Delivered: 09:44 Placenta: Yes: Expressed, Normal Configuration - Condition of Infant Materials Handler/Hand Wrapper Operator Present: Yes Name: Ana Rojas Gender: Female Weight: 3.459 kg Position: Left, OT Total Hours ROM (Hrs/Mins): 0/2 - 1 Minute Total Score: 9 5 Minutes Total Score: 9
[2018-08-27] MEDS: IBUPROFEN 600 MG TABLET (FP) PO PRN ×4 (01:24→19:29)
[2018-08-27] MEDS: SIMETHICONE 80 MG TAB.CHEW (FP) PO PRN ×2 (01:24→19:29)
[2018-08-27] MEDS: ACETAMINOPHEN 325 MG TABLET (FP) PO PRN ×4 (01:25→19:28)
[2018-08-27 07:28] LABS: BASO % 0.7 % (0-2.0); HEMATOCRIT 30.9 % (32.4-45.2); HEMOGLOBIN 10.5 GM/dL (10.7-15.3); LYMPH % 18.8 % (8-40); MCH 31.3 pg (25.7-33.7); MEAN PLT VOLUME 8.7 fl (7.5-11.1); MONO % 5.7 % (3.8-10.2); NEUT % 72.8 % (42.8-82.8); PLATELET COUNT 173 K/MM3 (134-434); RBC 3.35 M/mm3 (3.60-5.2); RDW 14.4 % (11.6-15.6); WHITE BLOOD COUNT 9.7 K/mm3 (4.0-10.0)
--- NOTE | 2018-08-27 08:06 | PN ---
Post Progress Note - Subjective Subjective: Patient without acute complaints. Reports tolerating oral intake without nausea or vomiting. Ambulating without dizziness. Denies fevers or chills. Pain well controlled with oral pain medication. without difficulty. Passing flatus. Post Day: 3 Type of Delivery: Repeat C/S Vital Signs: Vital Signs Temperature 98.2 F 08/26/18 21:40 Pulse Rate 86 08/26/18 21:40 Respiratory Rate 20 08/26/18 21:40 Blood Pressure 128/74 08/26/18 21:40 O2 Sat by Pulse Oximetry (%) 99 08/24/18 11:45 Breast Exam: Yes: Soft Uterus: Yes: Fundus Firm, Fundus below umbilicus Incision: Yes: Sutures intact. No: Redness, Oozing Abdomen/GI: Yes: Abdomen soft, Abdominal Distention (softly, + BS), Tender ( incisional), Passing flatus, Tolerating PO Lochia: Yes: Rubra Lochia, amount: Small Extremities: Yes: Calves non-tender, Edema (trace) Activity: Ambulating - Labs Labs: CBC WBC 8.5 K/mm3 (4.0-10.0) 08/25/18 08:30 RBC 3.57 M/mm3 (3.60-5.2) L 08/25/18 08:30 Hgb 11.1 GM/dL (10.7-15.3) 08/25/18 08:30 Hct 32.8 % (32.4-45.2) 08/25/18 08:30 MCV 92.1 fl (80-96) 08/25/18 08:30 MCH 31.0 pg (25.7-33.7) 08/25/18 08:30 MCHC 33.7 g/dl (32.0-36.0) 08/25/18 08:30 RDW 14.7 % (11.6-15.6) 08/25/18 08:30 Plt Count 133 K/MM3 (134-434) L 08/25/18 08:30 MPV 9.1 fl (7.5-11.1) 08/25/18 08:30 Absolute Neuts (auto) 6.6 K/mm3 (1.5-8.0) 08/25/18 08:30 Neutrophils % 77.7 % (42.8-82.8) 08/25/18 08:30 Lymphocytes % 15.2 % (8-40) D 08/25/18 08:30 Monocytes % 5.6 % (3.8-10.2) 08/25/18 08:30 Eosinophils % 0.7 % (0-4.5) 08/25/18 08:30 Basophils % 0.8 % (0-2.0) 08/25/18 08:30 Nucleated RBC % 0 % (0-0) 08/25/18 08:30 Assessment/Plan 32 yo POD # 3 s/p R CD, afebrile, vital signs stable, doing well 1. Continue routine postoperative care. 2. Encourage ambulation and incentive spirometer use 3. Continue oral pain medication 4. Anticipate discharge home postoperative day #4
[2018-08-27] MEDS: ENOXAPARIN NA (PORCINE) 40 MG/0.4 ML DISP.SYRIN SQ SCH (09:32)
[2018-08-28] MEDS: SIMETHICONE 80 MG TAB.CHEW (FP) PO PRN ×3 (00:56→11:41)
[2018-08-28] MEDS: ACETAMINOPHEN 325 MG TABLET (FP) PO PRN ×3 (00:56→11:40)
[2018-08-28] MEDS: IBUPROFEN 600 MG TABLET (FP) PO PRN ×3 (00:57→11:41)
[2018-08-28 10:15] VITALS: BP 128/82; PULSE 82; TEMP 98.2
[2018-08-28] MEDS: ENOXAPARIN NA (PORCINE) 40 MG/0.4 ML DISP.SYRIN SQ SCH (10:29)
--- NOTE | 2018-08-28 11:05 | PN ---
Post Progress Note - Subjective Subjective: Patient without acute complaints. Reports tolerating oral intake without nausea or vomiting. Ambulating without dizziness. Denies fevers or chills. Pain well controlled with oral pain medication. without difficulty. Passing flatus. Post Day: 4 Type of Delivery: Repeat C/S Vital Signs: Vital Signs Temperature 98.2 F 08/28/18 10:00 Pulse Rate 82 08/28/18 10:00 Respiratory Rate 20 08/28/18 10:00 Blood Pressure 128/82 08/28/18 10:00 O2 Sat by Pulse Oximetry (%) 99 08/24/18 11:45 Breast Exam: Yes: Soft Uterus: Yes: Fundus Firm Incision: Yes: Sutures intact Abdomen/GI: Yes: Abdomen soft, Passing flatus, Tolerating PO Lochia: Yes: Rubra Lochia, amount: Small Extremities: Yes: Calves non-tender Perineum: Yes: Intact Activity: Ambulating - Labs Labs: CBC WBC 9.7 K/mm3 (4.0-10.0) 08/27/18 06:30 RBC 3.35 M/mm3 (3.60-5.2) L 08/27/18 06:30 Hgb 10.5 GM/dL (10.7-15.3) L 08/27/18 06:30 Hct 30.9 % (32.4-45.2) L 08/27/18 06:30 MCV 92.0 fl (80-96) 08/27/18 06:30 MCH 31.3 pg (25.7-33.7) 08/27/18 06:30 MCHC 34.0 g/dl (32.0-36.0) 08/27/18 06:30 RDW 14.4 % (11.6-15.6) 08/27/18 06:30 Plt Count 173 K/MM3 (134-434) D 08/27/18 06:30 MPV 8.7 fl (7.5-11.1) 08/27/18 06:30 Absolute Neuts (auto) 7.0 K/mm3 (1.5-8.0) 08/27/18 06:30 Neutrophils % 72.8 % (42.8-82.8) 08/27/18 06:30 Lymphocytes % 18.8 % (8-40) D 08/27/18 06:30 Monocytes % 5.7 % (3.8-10.2) 08/27/18 06:30 Eosinophils % 2.0 % (0-4.5) D 08/27/18 06:30 Basophils % 0.7 % (0-2.0) 08/27/18 06:30 Nucleated RBC % 0 % (0-0) 08/27/18 06:30
--- NOTE | 2018-08-28 11:48 | DS ---
Physical Exam-EARTH AUGER OPERATOR Vital Signs: Vital Signs Temperature 98.2 F 08/28/18 10:00 Pulse Rate 82 08/28/18 10:00 Respiratory Rate 20 08/28/18 10:00 Blood Pressure 128/82 08/28/18 10:00 O2 Sat by Pulse Oximetry (%) 99 08/24/18 11:45 Constitutional: Yes: Well Nourished, No Distress, Calm Eyes: Yes: WNL, Conjunctiva Clear HENT: Yes: WNL, Atraumatic, Normocephalic Neck: Yes: WNL, Supple Cardiovascular: Yes: WNL, Regular Rate and Rhythm Respiratory: Yes: WNL, Regular, CTA Bilaterally Gastrointestinal: Yes: WNL, Normal Bowel Sounds, Soft Renal/: Yes: WNL Pelvis: Yes: WNL External Genitalia: Yes: Normal ....Post : Yes: Uterus firm, Uterus non-tender Breast(s): Yes: WNL Musculoskeletal: Yes: WNL Extremities: Yes: WNL Integumentary: Yes: WNL Wound/Incision: Yes: Clean/Dry, Well Approximated Neurological: Yes: WNL, Alert, Oriented ...Motor Strength: WNL Psychiatric: Yes: WNL, Alert, Oriented Labs: CBC, BMP 08/27/18 06:30 Delivery - Delivery Section: Repeat, Low Flap Transverse Type of Anesthesia: Spinal Episiotomy/Laceration: None EBL (cc): 700 Delivery, Single - Stages of Labor Date 1st Stage Initiatied: 08/24/18 Time 1st Stage Initiated: 07:00 Date of Delivery: 08/24/18 Time of Delivery: 09:43 Time Placenta Delivered: 09:44 Placenta: Yes: Expressed, Normal Configuration - Condition of Infant Promotions Executive/Junior Business Analyst Present: Yes Name: Ana Rojas Infant Gender: Female Weight: 7 lb 10 oz Position: Left, OT Total Hours ROM (Hrs/Mins): 0/2 - 1 Minute Total Score: 9 5 Minutes Total Score: 9 Discharge Summary Reason For Visit: REPEAT Current Active Problems delivery delivered (Acute) Procedures: Principal: Repeat c/section Condition: Good - Instructions Diet, Activity, Other Instructions: Physical activity Resume your normal everyday activity as tolerated no heavy lifting or exercise until seen by your surgeon. You may walk unlimited tim of and climb stairs. You may resume driving the car when you feel safe and comfortable behind the wheel. No sexual activity as instructed. Wound care If you have a bandage, leave it on, and keep dry for 48-72 hours. After that time discard the outer bandage. If they are tapes on the skin under the out of bandage leave them in place. They will peel off in the next 7 to 10 days. Do Not Peel them off. You may shower the day after surgery. If there are tapes present on the skin, you may shower over them. Diet There are no dietary restrictions. Eat healthy, high-fiber foods. Drink 6 to 8 glasses of liquid each day. This will assist in keeping your bowels are regular. Pain management You may take Tylenol or acetaminophen or Ibuprofen (for example, Motrin, Advil etc.) from my pain prescription medication is ordered should be taken as prescribed for moderate to severe pain. Call MD for any of the following: Severe pain not relieved by medication Fever of 101 or higher Excessive bleeding or drainage on dressing Inability to urinate Disposition: HOME - Home Medications Comprehensive Discharge Medication List: Ambulatory Orders Vitamins (Sjr) - 1 tab PO DAILY 04/16/16 Ibuprofen [Motrin -] 600 mg PO QID #60 tablet 08/27/18
--- NOTE | 2018-09-01 13:06 | PATH ---
Surgical Pathology Report Patient Name: CHRIS MARIE [facility]. Rec. #: [id number] /Age/Gender: 1985 (Age: 32) / F Account: [id number] Location: [facility] OBS/PRODUCT DEVELOPMENT CHEMIST Taken: 08/24/2018 Received: 08/25/2018 Reported: 08/31/2018 Physicians: Felipe Crockett M.D. Specimen(s) Received PLACENTA Clinical History previous in early labor March 2016 Final Diagnosis PLACENTA, SECTION: 479 G THIRD TRIMESTER PLACENTA WITH TRIVASCULAR UMBILICAL CORD AND UNREMARKABLE PLACENTAL MEMBRANES. Electronically Signed Nasra Arriaga M.D. Gross Description The specimen is received fresh labeled placenta and is a 479 gram, 18 x16 x 2.5 cm placenta with attached membranes and umbilical cord. The attached membranes are glistening, translucent, and insert marginally. The umbilical cord measures 10 cm. in length and averages 1.0 cm. in diameter. The cord inserts eccentrically, 3 centimeter to the nearest margin. No true knots or strictures are identified. Cut surface of the umbilical cord reveals 3 vessels. Sectioning reveals red-brown, spongy parenchyma. Focal placental disruption at the periphery with one portion of placenta erythema measuring 5 cm in greatest dimension is noted. Skin Therapist sections are submitted in three cassettes as follows: 1- membrane rolls and umbilical cord; 2-3- full thickness sections of placenta 4- separate portion of fragmented placenta KWS/08/27/2018 sulki/08/27/2018
== END 2018-08-28 12:40 | disposition home or self-care (01) | DRG 788 ==
LOC: JLDR 05:30 → J3W 12:23
PROVIDERS: ADMIT Obstetrics & Gynecology; ATTEND Obstetrics & Gynecology
PROC: 10D00Z1 Extraction of Products of Conception, Low, Open Approach (ICD-10-PCS; principal; 2018-08-24)
DX: O48.0 Post-term pregnancy (principal); O64.8XX0 Obstructed labor due to other malposition and malpresentation, not applicable or unspecified; Z3A.40 40 weeks gestation of pregnancy; Z37.0 Single live birth
CPT/HCPCS: 36415; 36600; 82803; 85025; 88307-TC

== ENCOUNTER 2019-10-25 04:57 | Day surgery (SDC) | payer BC, OTHER ==
[2019-10-21 10:02] VITALS: BMI 26.5
[2019-10-25] MEDS ORDERED: oxyCODONE HCL 5 MG TABLET PO PRN ×2 (09:11)
[2019-10-25] MEDS ORDERED: ONDANSETRON 4 MG/2 ML VIAL IVPUSH PRN (09:11)
[2019-10-25] MEDS ORDERED: LACTATED RINGERS SOLUTION 1,000 ML IV SCH (09:15)
--- NOTE | 2019-10-25 09:17 | HP ---
History & Physical Update - History History: No Change - Physical Physical: No Change - Assessment Assessment: No Change - Plan Plan: No Change (Hysteroscopy, myomectomy, D&C)
[2019-10-25] MEDS ORDERED: MIDAZOLAM HCL 2 MG/2 ML SINGLE DOSE VIAL ONE (09:34)
[2019-10-25] MEDS ORDERED: DEXAMETHASONE SOD PHOSPHATE 4 MG/1 ML VIAL ONE (09:35)
[2019-10-25] MEDS ORDERED: KETOROLAC TROMETHAMINE 30 MG/1 ML VIAL ONE (09:35)
[2019-10-25] MEDS ORDERED: PROPOFOL 20 ML ONE ×2 (09:35)
[2019-10-25] MEDS ORDERED: LIDOCAINE HCL/PF 2% SDV 5ML VIAL ONE (09:35)
[2019-10-25] MEDS ORDERED: ceFAZolin SODIUM 1 GM VIAL IVPB ONE (09:50)
[2019-10-25] MEDS ORDERED: ceFAZolin SODIUM 1 GM VIAL ONE (10:00)
--- NOTE | 2019-10-25 10:38 | OP ---
Operative Note - Note: Operative Date: 10/25/19 Pre-Operative Diagnosis: submucosal myoma Operation: Hysteroscopy, myomectomy, lysis of synechiae, D&C Findings: Left fundal calcified myoma, uterine synechiae. Post-Operative Diagnosis: Same as Pre-op Surgeon: Felipe Crockett Anesthesiologist/BELT LOOP CUTTER: Antonia Bowie Anesthesia: General Specimens Removed: Submucosal myoma, endometrial curettings Estimated Blood Loss (mls): 5 Blood Volume Replaced (mls): 0 Fluid Volume Replaced (mls): 600 Operative Report Dictated: Yes
[2019-10-25 15:15] VITALS: BP 110/73; PULSE 68; TEMP 97.6
--- NOTE | 2019-10-25 18:18 | OP ---
DATE OF OPERATION: 10/25/2019 PREOPERATIVE DIAGNOSIS: Submucous uterine myoma. POSTOPERATIVE DIAGNOSIS: Submucous uterine myoma. Uterine synechiae. SURGEON: Felipe Crockett MD. ANESTHESIOLOGIST: Antonia Bowie MD. ANESTHESIA: General. COMPLICATIONS: None. ESTIMATED BLOOD LOSS: 5 mL. INTRAVENOUS FLUIDS: 600 mL. COMPLICATIONS: None. PATHOLOGY: Submucous myoma, endometrial curettings. PROCEDURE: Hysteroscopy, myomectomy, lysis of uterine synechiae, and dilation and curettage. FINDINGS: Examination under anesthesia revealed a small anteverted uterus with no pelvic or adnexal masses. Hysteroscopy revealed several synechiae in the mid uterine fundus as well as a left submucous calcified small myoma. Otherwise the uterine cavity appeared to be within normal limits. Both fallopian tube ostia were visualized. PROCEDURE: The patient was met preoperatively. Risks, benefits, and alternatives of surgery were discussed. All questions were answered. The consent form was reviewed and discussed. The patient verbalized her understanding. The consent form was signed and the patient requested to proceed with the surgery. The patient was brought to the OR with the IV running. She was placed on a surgical table in the supine position. The general anesthesia was achieved without difficulty. The patient was then placed in a dorsal lithotomy position using adjustable Lul stirrups. She was examined under anesthesia. A small anteverted uterus was noted. No pelvic or adnexal mass were observed. The patient was then prepped and draped in the usual sterile fashion. A timeout was conducted as per standard protocol. A weighted speculum was introduced inside the vagina with good visualization of the cervix. The cervix was grasped with a single-toothed tenaculum. The endocervical canal was dilated to accommodate a size 21 Hart dilator. A hysteroscope was introduced inside the uterine cavity. Four or five uterine synechiae were noted in the fundal region of the uterus. A small left submucosal myoma was noted on the dorsal uterine wall and it appeared to be calcified. A resectoscope was then used to lyse all the synechiae without complications. The submucosal myoma was also removed without difficulty. Once this was done, a hysteroscope was removed. A gentle uterine curettage was performed. All of the tissue was sent to pathology. Good hemostasis was noted. The patient was returned to supine position. She was transferred to recovery room in stable condition. Sponge, lap, instrument counts were correct. Zachary [id number]
--- NOTE | 2019-10-26 14:27 | PATH ---
Surgical Pathology Report Patient Name: CHRIS MARIE [facility]. Rec. #: [id number] /Age/Gender: 1985 (Age: 34) / F Account: [id number] Location: [facility] SURGICAL Taken: 10/25/2019 Received: 10/25/2019 Reported: 10/26/2019 Physicians: Felipe Crockett M.D. Specimen(s) Received A: ENDOMETRIAL CURETTINGS AND POLYP B: ENDOMETRIAL FIBROIDS Clinical History Submucous leiomyoma of uterus/endometrial polyp Final Diagnosis A. ENDOMETRIAL CURETTINGS AND POLYP: ENDOMETRIAL POLYP. SEPARATE PROLIFERATIVE ENDOMETRIUM. B. ENDOMETRIAL FIBROIDS: ENDOMETRIAL POLYP WITH FOCAL INFARCTION. SEPARATE SMOOTH MUSCLE BUNDLES, MAY REPRESENT A SUBMUCOSA LEIOMYOMA IN THE PROPER CLINICAL SETTINGS. SEPARATE PROLIFERATIVE ENDOMETRIUM. Electronically Signed Gareth Henning M.D. Gross Description A. Received in formalin labeled "endometrial curettings and polyp," is a 3.3 x 2.6 x 0.3 cm aggregate of cavazos soft tissue fragments admixed with blood-tinged mucous. The formalin is filtered and the specimen is entirely submitted in 2 cassettes. B. Received in formalin labeled "endometrial fibroid," is a 1 g, 2.4 x 1.9 x 0.2 cm aggregate of cavazos soft tissue fragments. The formalin is filtered and the specimen is entirely submitted in one cassette. /10[facility]
== END 2019-10-25 13:45 | disposition home or self-care (01) ==
LOC: JASU-SURG 04:57
PROVIDERS: ATTEND Obstetrics & Gynecology
PROC: 0UDB7ZX Extraction of Endometrium, Via Natural or Artificial Opening, Diagnostic (ICD-10-PCS; 2019-10-25)
PROC: 0UJD8ZZ Inspection of Uterus and Cervix, Via Natural or Artificial Opening Endoscopic (ICD-10-PCS; 2019-10-25)
PROC: 0UB98ZZ Excision of Uterus, Via Natural or Artificial Opening Endoscopic (ICD-10-PCS; principal; 2019-10-25 08:30)
PROC: 0UN98ZZ Release Uterus, Via Natural or Artificial Opening Endoscopic (ICD-10-PCS; 2019-10-25 08:30)
DX: D25.0 Submucous leiomyoma of uterus (principal); N85.6 Intrauterine synechiae
CPT/HCPCS: 81025; 88305-TC; 94760